=== PATIENT | female | born 1975 | race Caucasian/White ===

== ENCOUNTER 2025-03-03 22:11 | Emergency (ER) | payer MEDICAID, SELFPAY ==
[2025-03-03 22:14] VITALS: BMI 44.6
[2025-03-03 22:30] VITALS: BP 152/101; PULSE 86; RESP 19; TEMP 36.3; O2SAT 96
--- NOTE | 2025-03-03 22:53 | PD.EDWOUND ---
ED Wound/Laceration-RME/HPI General Chief Complaint: Fall Stated Complaint: FELL, LEFT KNEE INJURY WITH LACERATION Time Seen by Provider: 03/03/25 22:47 Arrival date/time: 03/03/25 22:11 49F with history of psych and traumatic brain bleed many years ago presents to ED with L knee lac after patient was putting up some lights, took off her jacket, which made her become dizzy and lose her balance yesterday. Patient states no longer dizziness. Patient has not had a tetanus shot in the past 5 years. Limitations: no limitations Related Data Home Medications ?Medication ?Instructions ?Recorded ?Confirmed ACETAMINOPHEN WITH CODEINE 1 tab PO Q4HR PRN Y ##0 06/24/13 (TYLENOL #3 TABLET) Butalb/Acetaminophen/Caffeine 1 tab PO PRN PRN HEADACHE ##0 06/24/13 (Fioricet Tablet) Clonazepam PO PRN PRN ##0 06/24/13 MECLIZINE HCL (ANTIVERT 12.5MG 12.5 mg PO BID ##0 06/24/13 TABLET) Mag Hydrox/Al Hydrox/Simeth 15 ml PO Q6HR PRN CONSTIPATION ##0 06/24/13 (Maalox Ms Liquid) Naproxen Sodium (Midol) PO PRN PRN ABDOMINAL CRAMPING ##0 06/24/13 diphenhydramine HCl 25 mg capsule 25 mg PO Q6HR PRN ITCHING ##0 06/24/13 (Benadryl) sertraline 50 mg tablet (Zoloft) 50 mg PO QDAY #0 tabs 06/24/13 Allergies Allergy/AdvReac Type Severity Reaction Status Date / Time avocado Allergy Unknown Verified 03/03/25 22:13 NUTS Allergy Unknown Uncoded 03/03/25 22:13 Review of Systems Review of Systems Systems Reviewed: All systems reviewed, normal except as documented Integumentary/Breasts Skin/Breast: Reports as per HPI and Reports skin pain Past Medical History Social History SMOKING STATUS: Never smoker ED Exam General Limitations: Present no limitations General appearance: Present alert and in no apparent distress Head Head exam: Present atraumatic Neck Neck exam: Present normal inspection, full ROM and trachea midline Chest Chest inspection: Present normal inspection and symmetric chest wall rise Extremities Exam Extremities exam: Present full ROM Expanded Lower Extremity Exam Knee exam: Present full ROM and laceration (2 cm L knee) Neurological Exam Neurological exam: Present alert and oriented X3 Psychiatric Psychiatric exam: Present normal affect and normal mood Skin Skin exam: Present warm, dry, intact and normal color Course Quality Measures none Orders Category Date Time Status Set Up Suture Tray STAT Care 03/03/25 22:49 Active Wound Care NOW Care 03/03/25 22:49 Active TET,DIP/PERT AC (Adult)-Tdap [Boostrix Adult (Tdap) Med 03/03/25 22:49 Discontinued Vacc] 0.5 ml IMI .ONCE ONE Vital Signs Vital signs: Vital Signs Temperature 97.3 F 03/03/25 22:30 Pulse Rate 86 03/03/25 22:30 Respiratory Rate 19 03/03/25 22:30 Blood Pressure 152/101 H 03/03/25 22:30 Pulse Oximetry (%) 96 03/03/25 22:30 Oxygen Delivery Method Room Air 03/03/25 22:30 O2 at 96% on RA and WNLs Wound / Laceration MDM Narrative MDM Narrative:: 49F with history of psych and traumatic brain bleed many years ago presents to ED with L knee lac after patient was putting up some lights, took off her jacket, which made her become dizzy and lose her balance yesterday. Patient states no longer dizziness. Patient has not had a tetanus shot in the past 5 years. Physical exam reveals 2 cm lac on L knee. ROM and gait intact. Patient is afebrile, calm, and alert. Speech normal. Normal WOB. Wound cleaned/irrigated and closed with 5 stitches. Given school guidance counselor to have them removed in about 10-14 days. Patient data External records reviewed:: [facility] previous records Clinical information provided by:: patient Social determinants that could affect healthcare access:: mental health Patient has the following chronic illnesses:: psych and brain bleed How is presenting disease/condition affected by chronic disease/condition?: exacerbated by Evaluation data The following diagnostics were reviewed and interpreted by me:: other (specify) (none) Lab and/or radiology exams considered but not ordered:: not ordered Interpretation Summary: n/a Medications / Prescriptions Medications or Prescriptions considered but not ordered:: ordered Medication administrations:: Medication Administration History Discontinued Medications Diphtheria/Tetanus/Acell Pertussis (Diphth,Pertuss(Acell),Tet Vac 0.5 Ml Syr- Adult) 0.5 ml IMi .ONCE ONE Stop: 03/03/25 22:50 above Consultations Consultation(s) initiated? (list below): No Diagnosis Wound Differential Diagnosis: laceration, abrasion and avulsion of skin Most likely diagnosis given after review of the tests above:: laceration Admission Indicated Admission indicated?: not indicated Admission Request Was there a request for admission?: No Disposition Plan Disposition Plan: Discharge Discharge Attestation Discharge Attestation: The patient and all family members were given an opportunity to ask questions and understood the discharge instructions. Discharge instructions specifically effects, indications for sooner follow up or return to the emergency department, and the expected course of current diagnosis. Patient condition: Stable Discharge Plan Plan Patient Disposition: HOME (Self Care) Discharge Disposition comment: Stable Prescriptions/Referrals Prescriptions/Med Rec: No Action ACETAMINOPHEN WITH CODEINE (TYLENOL #3 TABLET) 5 EA DISP PACK 1 tab PO Q4HR PRN (Reason: Y) Qty: 0 diphenhydramine HCl [Benadryl] 25 MG capsule 25 mg PO Q6HR PRN (Reason: ITCHING) Qty: 0 sertraline [Zoloft] 50 MG tablet 50 mg PO QDAY Qty: 0 Butalb/Acetaminophen/Caffeine (Fioricet Tablet) 1 TAB tablet 1 tab PO PRN PRN (Reason: HEADACHE) Qty: 0 Clonazepam tablet PO PRN PRNQty: 0 MECLIZINE HCL (ANTIVERT 12.5MG TABLET) 12.5 MG tablet 12.5 mg PO BID Qty: 0 Mag Hydrox/Al Hydrox/Simeth (Maalox Ms Liquid) 360 ML ORAL.SUSP 15 ml PO Q6HR PRN (Reason: CONSTIPATION) Qty: 0 Naproxen Sodium (Midol) 220 MG tablet PO PRN PRN (Reason: ABDOMINAL CRAMPING) Qty: 0 Problem List Clinical Impression: Laceration Patient/Caregiver Discharge Instructions Education Materials: ED Laceration: All Closures Additional Instructions: Please follow-up with PCP within 24-48 hours and return immediately if symptoms worsen. Have stitches removed in about 10-14 days. Print Language: British Stand Alone Forms: Patient Portal Info Letter PERRY/SETH Supervising Physician PERRY/SETH Supervising Physician: Dr. Herrera
[2025-03-03] MEDS: DIPHTH,PERTUSS(ACELL),TET VAC 0.5 ML SYR- ADULT IMi (23:32)
[2025-03-03] MEDS: NAPROXEN 250 MG TABLET 500 MG PO (23:34)
== END 2025-03-03 23:38 | disposition home or self-care (01) ==
PROVIDERS: Emergency Provider Emergency Medicine; PCP Physician Assistant Medical
DX: S81.012A Laceration without foreign body, left knee, initial encounter (principal); W19.XXXA Unspecified fall, initial encounter
CPT/HCPCS: 12001; 90471; 90715; 99283; A9270